=== PATIENT | male | born 1960 | race Caucasian/White ===

== ENCOUNTER 2017-05-13 10:21 | Day surgery (SDC) | payer MEDICARE, BC ==
[~2017-05-13] VITALS: Ht 188 cm; Wt 126.1 kg
[2017-05-13] MEDS ORDERED: IOHEXOL 350 MG/ML 100 ML BTL (for Cath Lab) OTHER ONE (10:22)
[2017-05-13 11:00] VITALS: BP 174/93; PULSE 91; RESP 18; TEMP 97.8; O2SAT 97
[2017-05-13] MEDS ORDERED: ASPI81CH CHEW (11:09)
[2017-05-13] MEDS ORDERED: HYDR25TA5 PO (11:09)
[2017-05-13] MEDS ORDERED: INSU1.2I SQ (11:09)
[2017-05-13] MEDS ORDERED: METO-309 PO (11:09)
[2017-05-13] MEDS ORDERED: [UNRECOGNIZED DRUG - CODE] PO (11:09)
[2017-05-13] MEDS ORDERED: CANA1TAB6 PO (11:09)
[2017-05-13] MEDS ORDERED: CHRO200C PO (11:09)
[2017-05-13] MEDS ORDERED: LIPI10TA PO (11:09)
[2017-05-13] MEDS ORDERED: ASPIRIN 81 MG CHEW TAB PO SCH (11:15)
[2017-05-13 11:24] LABS: AUTOMATED NEUTROPHIL # 8.2 TH/MM3 (1.8-7.7); BASOPHIL # 0.1 TH/MM3 (0-0.2); BASOPHIL % 0.6 % (0.0-2.0); EOSINOPHIL # 0.1 TH/MM3 (0-0.4); EOSINOPHIL % 0.7 % (0.0-4.0); HEMATOCRIT 44.1 % (39.0-51.0); HEMO FLAGS DIFF FINAL; LYMPH % 19.6 % (9.0-44.0); LYMPHOCYTE # 2.3 TH/MM3 (1.0-4.8); MEAN CELL VOLUME 94.6 FL (80.0-100.0); MEAN CORPUSCULAR HEMOGLOBIN 31.5 PG (27.0-34.0); MEAN CORPUSCULAR HGB CONC 33.3 % (32.0-36.0); MONO % 8.3 % (0.0-8.0); NEUT % 70.8 % (16.0-70.0); PLATELET COUNT 344 TH/MM3 (150-450); RED BLOOD COUNT 4.66 MIL/MM3 (4.50-5.90); RED CELL DISTRIBUTION WIDTH 13.8 % (11.6-17.2); WHITE BLOOD COUNT 11.6 TH/MM3 (4.0-11.0)
[2017-05-13 11:38] LABS: BICARBONATE 24.6 MEQ/L (21.0-32.0); POTASSIUM 3.9 MEQ/L (3.5-5.1)
[2017-05-13] MEDS ORDERED: HEPARIN-NS/PF INJ 1,000 ML ONE (13:14)
[2017-05-13] MEDS ORDERED: MIDAZOLAM HCL 2 MG/2 ML VIAL ONE (13:38)
--- NOTE | 2017-05-13 14:09 | CATHPROC ---
[employer] HIS Report Study Information Study Number Admission Scheduled Start Study Start [id number] May 13 2017 10:21AM 05/13/2017 May 13 2017 1:05PM [place] [facility] Cardiac Catheterization Admit Source Facility Department Other [facility] - Molding Line Operator Physician and Clinical Staff Initial John Cardona Candle Molder Machinepaulette Moyer RN, Dominic Keith cathlab, cathlab Recorder Benito Beck RCIS(BS) Antonia Nelson RCIS TECH2 Procedures Performed Procedure Location (Site) Vessel Name Coronary Angiograms LCA Left Coronary Coronary Angiograms RCA Right Coronary L Heart Cath LV Gram-hand inj. LV LV Ventricle Equipment Time Pipe Smoking Machine Offbearer Description Size Mfg Part Number Used/Scraped TRANSDUCER, TRUWAVE [id number] 13:05 MAXWELL MARTINEZ * Used W/STOCKCOCK *[id number] [id number] *[id number] *[id number] *[id number] 13:05 [email or web address] INDUSTRIES PACK, CCL CUSTOM * Used *[id number] 13:05 [email or web address] PACER PEN, SKIN DUAL W/ RULER * Used *[id number] 13:05 [employer] WIRE, 3MMJ .035 180CM 180CM Used *[id number] 13:05 NAMIC MANIFOLD, 4 PORT * Used *[id number] 13:05 [employer] OMNIPAQUE, 350 MG, 150ML 150ML [id number] Used [id number] 13:05 [employer] MEDICAL BLANKET,WARM AIR CCL * Used *[id number] 13:05 TERUMO MEDICAL SHEATH, FR4 TERUMO (10CM) FR 4 Used *[id number] History: Current Medications Medication Dosage/Unit Route Frequency Last Date/Time Taken Beta Aleksandr Statins (any) ASA History: Allergies Allergy Reaction No Known Allergies History: Risk Factors Family History of Hypertension Dyslipidemia Previous ND Previous Heart Failure Premature CAD Yes Yes Yes No No Prior Valve Prior PCI Prior CABG Surgery No No No Cerebrovascular Peripheral Artery Chronic Lung On Dialysis Diabetes Diabetes Therapy Disease Disease Disease No No No No Yes Oral History: Stress Tests Stress or Imaging Studies Performed Yes Standard Exercise Stress Test No Stress Echo No Stress Test SPECT Stress Test SPECT Result Stress Test SPECT Ischemia Risk/Extent Yes Positive Unavailable Stress Test CMR No Cardiac CTA Coronary Calcium Score No No History: Other Disease Selection Items HTN History: Other Current Smoker No Labs Hgb (g/dl) Hct (%) WBC (l/cumm) Platelets (thousands) 11.60-17.00 35.00-51.00 4.00-11.00 150.00-450.00 14.7 44.1 11.6 344 Glucose (mg/dl) BUN (mg/dl) Creatinine (mg/dl) BUN:Creatinine (1:x) 74.00-106.00 7.00-18.00 0.50-1.30 10.00-20.00 152 18 0.8 22.5 Na (meq/l) K (meq/l) 136.00-145.00 3.50-5.10 138 3.9 CPK-MB (ng/ML) 0.50-3.60 Not Drawn Medication Medication Total Dose (Bolus/Oral) Medication Total Dosage/Unit 1% XYLOCAINE 20 mL VERSED 2 mg Medications (Bolus/Oral) Medication Time Given Dosage/Unit Administered By Reason VERSED 05/13/2017 1:39:52 PM 1 mg Dominic Moyer RN 1 mg VERSED given in lab by Dominic Moyer RN in Left Antecubital via Peripheral IV. Ordered by John Juarez. VERSED 05/13/2017 1:46:31 PM 1 mg Dominic Moyer RN 1 mg VERSED given in lab by Dominic Moyer RN in Left Antecubital via Peripheral IV. Ordered by John Juarez. 1% XYLOCAINE 05/13/2017 1:47:57 PM 20 mL John Mann 20 mL 1% XYLOCAINE given in lab by John Mann in Right Groin via Subcutaneous. Medication (Drip) Medication Time Given Dosage/Unit Concentration/Unit Diluent (ml) Solutio n IV Solutions 05/13/2017 1:04:52 PM 0 mL (IV) 500 NaCl .9 Patient arrived on IV Solutions given by sarah smith in Left Antecubital via Peripheral IV. Pump /Drip Flow = 20 ml/hr using NaCl .9. Ordered by John Mann. Initial Case Assessment Cardiovascular HR Rhythm NIBP Chest Pain 93 nsr 163/89 0 Edema Present Skin color Skin None Normal Warm Dry Circulatory - Right Pulses Dorsalis Pedis Femoral 3 2 Scale (0,1,2,3,4,d) Circulatory - Left Pulses Dorsalis Pedis Femoral 3 2 Scale (0,1,2,3,4,d) Neurological State Oriented to time-place- Alert Moves all extremities person Respiration - General Respiration Rate SpO2 (%) (B/min) 16 96 Final Case Assessment Cardiovascular HR Rhythm NIBP Chest Pain 84 nsr 156/86 0 Edema Present Skin color Skin None Normal Warm Dry Circulatory - Right Pulses Dorsalis Pedis Femoral 3 2 Scale (0,1,2,3,4,d) Circulatory - Left Pulses Dorsalis Pedis Femoral 3 2 Scale (0,1,2,3,4,d) Neurological State Oriented to time-place- Alert Moves all extremities person Respiration - General Respiration Rate SpO2 (%) (B/min) 16 96 Chronological Log Time Study Chronological Log 13:04:44 Patient arrived via Bed. 13:04:45 Patient Name, D.O.B, / Armband Verified By R.N. 13:04:45 Consent signed by the physician and the patient and verified by the Molding Line Operator staff. 13:04:46 Pre-op and post- op instructions given; patient acknowledges understanding of instructions. 13:04:46 Verbal Stimulation=2 Physical Stimulation=2 Airway=2 Respiration=1 TOTAL=8. (0=absent, 1=li mited, 2=present) 13:04:47 Presedation assessment performed by Molding Line Operator RN. 13:04:48 Immediate Presedation assesment performed by physician. 13:04:48 Patient has been NPO for More than 6Hrs. 13:04:49 Skin Breakdown- none per patient. 13:04:50 Patient Warmer Placed on the Table. 13:04:50 Rodrigo Prominences Protected 13:04:51 A # 20 IV was noted in the Antecubital (left). Grade = 0 Patient arrived on IV Solutions given by cathlab, cathlab in Left Antecubital via Peripheral IV . Pump/Drip Flow = 20 13:04:52 ml/hr using NaCl .9. Ordered by John Mann. 13:04:53 History and physical on the chart or being dictated. 13:16:14 Reference ECG taken Vitals capture started with the following parameters, Patient=Adult, Interval=5 min, Initial Pr clpteu=487 mmHg, 13:17:24 Deflation Rate=5 mmHg Assessment: Initial Case, HR=93 BPM, Rhythm=nsr, XPCX=639/89 mmhg, Chest Pain=0, Edema=None, Co varun=Normal, Skin = Warm, Dry Right Pulses: Jaskaran Ped=3, Femoral=2 13:17:25 Left Pulses: Jaskaran Ped=3, Femoral=2 Neurological: State=Alert, Ox3, MARINELLI Respiration: Resp=16 B/min, SpO2=96 % 13:18:40 Bilateral groins prepped with 2% chlorhexidine, and with a 3 min. waiting time. 13:18:49 HR=82 bpm, ABNE=273/89 mmhg, SpO2=96.0 %, Resp=16 B/min, Pain=0, Charles=10, Marrufo=2 13:23:11 HR=86 bpm, MCNH=174/86 mmhg, SpO2=97.0 %, Resp=14 B/min, Pain=0, Charles=10, Marrufo=2 13:24:01 MD paged 13:25:29 MD responded 13:28:08 HR=88 bpm, RNSE=646/99 mmhg, SpO2=96.0 %, Resp=14 B/min, Pain=0, Charles=10, Marrufo=2 13:28:35 Pressure channel 1 zeroed. 13:33:07 HR=94 bpm, SXSQ=955/98 mmhg, SpO2=98.0 %, Resp=8 B/min, Pain=0, Charles=10, Marrufo=2 13:38:01 MD arrived. 13:38:11 HR=88 bpm, RHNP=589/82 mmhg, SpO2=96.0 %, Resp=13 B/min, Pain=0, Charles=10, Marrufo=2 13:39:52 1 mg VERSED given in lab by Dominic Moyer RN in Left Antecubital via Peripheral IV. Ordered by John Mann. 13:40:13 Contrast Scanned 13:43:12 HR=83 bpm, JZVK=661/82 mmhg, SpO2=91 %, Resp=13 B/min, Pain=0, Charles=10, Marrufo=2 13:46:31 1 mg VERSED given in lab by Dominic Moyer RN in Left Antecubital via Peripheral IV. Ordered by John Mann. Time Out. Correct patient, correct procedure,correct physician, ,power injector not loaded with contrast with surgical 13:47:25 team present. Time Out Concurred by , individual staff in procedure 13:47:51 Case Start 13:47:52 Verbal Stimulation=2 Physical Stimulation=2 Airway=2 Respiration=2 TOTAL=8. (0=absent, 1=li mited, 2=present) 13:47:57 20 mL 1% XYLOCAINE given in lab by John Mann in Right Groin via Subcutaneous. 13:48:11 HR=82 bpm, BMAS=746/91 mmhg, SpO2=93.0 %, Resp=16 B/min, Pain=0, Charles=10, Marrufo=2 13:49:01 Access site was Right Femoral Artery. 13:49:05 A SHEATH, FR4 TERUMO (10CM) FR 4 was advanced into the Fem Art (right) using the Percutaneo us technique. A JR 4.0 INFINITI CATHETER FR 4 was advanced over a wire. OMNIPAQUE, 350 MG, 150ML 150ML was us ed for 13:49:09 injections. Recorded Pressure: LV, HR=93, Condition=Condition 1 13:51:18 (Left Ventricle) LV 135/3/15 13:51:25 The LV was manually injected with 10 cc's and visualized. OMNIPAQUE, 350 MG, 150ML 150ML us ed. Recorded Pressure: LV, Ao, HR=70, Condition=Condition 1 13:51:40 (Left Ventricle) LV 132/11/44, (Aorta) Ao 119/71/90 13:51:53 The RCA was injected and visualized at various angles. OMNIPAQUE, 350 MG, 150ML 150ML used . Recorded Pressure: Ao, HR=82, Condition=Condition 1 13:52:51 (Aorta) Ao 123/72/96 13:53:12 HR=83 bpm, KTDU=654/85 mmhg, SpO2=96.0 %, Resp=19 B/min, Pain=0, Charles=10, Marrufo=2 13:53:46 Catheter was removed A JL 4.0 INFINITI CATHETER FR 4 was advanced over a wire. OMNIPAQUE, 350 MG, 150ML 150ML was us ed for 13:53:48 injections. 13:55:20 Catheter was removed A JL 5.0 INFINITI CATHETER FR 4 was advanced over a wire. OMNIPAQUE, 350 MG, 150ML 150ML was us ed for 13:55:52 injections. 13:58:13 HR=84 bpm, GZRO=931/86 mmhg, SpO2=95.0 %, Resp=11 B/min, Pain=0, Charles=10, Marrufo=2 13:58:28 The LCA was injected and visualized at various angles. OMNIPAQUE, 350 MG, 150ML 150ML use d. 13:58:39 Catheter was removed 13:58:42 Case End Assessment: Final Case, HR=84 BPM, Rhythm=nsr, PCQE=119/86 mmhg, Chest Pain=0, Edema=None, Col or=Normal, Skin = Warm, Dry Right Pulses: Jaskaran Ped=3, Femoral=2 13:58:47 Left Pulses: Jaskaran Ped=3, Femoral=2 Neurological: State=Alert, Ox3, MARINELLI Respiration: Resp=16 B/min, SpO2=96 % 13:59:10 Catheter(s) removed without difficulty 13:59:12 Sheath(s) left in place, will be removed in Holding Area 13:59:14 Sterile dressing applied to site 13:59:14 No case complications noted. 13:59:15 Cine recording checked. 13:59:17 Bedside Report will be given. 13:59:18 Contrast Scanned 13:59:22 A Left Heart Cath was performed. 14:03:08 HR=84 bpm, UZCN=084/93 mmhg, SpO2=96.0 %, Resp=12 B/min, Pain=0, Charles=10, Marrufo=2 14:07:36 Vitals capture stopped. 14:07:41 Patient moved to [facility] End Study - Contrast Media Used In Study Contrast Total Opened (mL) Total Used (mL) Total Wasted (mL) Omnipaque 60 60 0 End Study - Maximum Contrast Load Max Contrast Load (mL) 788.1 End Study - Radiation Exposure Fluoro Time (minutes) 2.2 End Study - Patient Disposition Complications Transferred To Interventional Outcome No Molding Line Operator Holding No attempt made
[2017-05-13] MEDS ORDERED: BACITRACIN OINT 0.9 GM PKT TOP ONE (14:30)
[2017-05-13] MEDS ORDERED: SODIUM CHLORIDE 0.9% FLUSH 10 ML FLUSH PRN (14:30)
[2017-05-13] MEDS ORDERED: MISC INFORMATION XX ONE (14:30)
--- NOTE | 2017-05-13 16:20 | MA ---
cc: TAE QUACH M.D. DATE: 05/13/2017 PROCEDURE PERFORMED Left heart catheterization, left ventriculography, coronary angiography. INDICATION New onset cardiac symptom of left upper extremity pain at rest, anginal eqivilent, unstable angina, [place] Cardiovascular Society Class IV angina, moderate-sized fixed defect ____ in the posterior wall, anterolateral wall, EF 63%, diabetes mellitus. Note, the patient was counseled by myself personally to hold his Invokamet for 48 hours postprocedure. PROCEDURE The patient was brought to the cardiac catheterization laboratory, prepped and draped in usual sterile fashion. 10 ccs of 1% lidocaine was used to locally anesthetize the right common femoral artery. A 4-Czech sheath was successfully placed in the right common femoral artery. A 4-Czech JR-4, JL-5 catheter was used to perform left and right coronary angiography, left ventriculography. FINDINGS LV pressure is 95/15, EF 60%, right coronary artery is a co-dominant vessel. It has a mid 40% stenosis and a [id number] 50% stenosis. Left main coronary is short and wide diameter with no significant disease angiographically. LAD has mild to moderate disease in the proximal mid segment up to 30-40% angiographically. It is a transapical vessel. It has mild disease in the mid segment up to 10-20% angiographically. First diagonal artery is medium-sized vessel with mild disease up to 20% angiographically in the ostial proximal segment. Left circumflex vessel was a large dominant vessel, no significant obstructive disease angiographically. There is a ramus intermedius vessel which is a small vessel, mild diffuse disease up to 10-20% angiographically. First obtuse marginal vessel is a large vessel approaching the apex with a 50% stenosis in the mid segment of the bifurcation with a small lateral branch. There is a distal posterolateral artery which has no significant obstructive disease. The left PDA has no significant obstructive disease. CONCLUSION 1. Angiographically mild to moderate three-vessel coronary artery disease and a codominant system as detailed above. 2. Normal LV systolic function, ejection fraction 60%. 3. The patient has been instructed by myself personally to hold his Invokamet for 48 hours postprocedure. 4. Recommend medical management of coronary artery disease, cardiac risk factor modification. MD NAYELI Dwyer/TLL /2:12 PM /3:47 PM
[2017-05-13] MEDS ORDERED: SODIUM CHLORIDE 0.9% FLUSH 10 ML FLUSH SCH (21:00)
--- NOTE | 2017-05-14 12:04 | EKG ---
Date Performed: 05/13/2017 Time Performed: 11:06:54 PTAGE: 57 years EKG: Sinus rhythm . Inferior infarct - age undetermined Septal T wave changes are nonspecific Abnormal ECG NO PREVIOUS TRACING DOCTOR: Orlin Kennedy Interpretating Date/Time 05/14/2017 12:01:50
== END 2017-05-13 17:11 | disposition home or self-care (01) ==
LOC: HCAT 10:21 → HDIC 10:22 → HCAT 17:11
PROVIDERS: ATTEND Internal Medicine Interventional Cardiology
DX: I25.110 Atherosclerotic heart disease of native coronary artery with unstable angina pectoris (principal); E78.00 Pure hypercholesterolemia, unspecified; E11.9 Type 2 diabetes mellitus without complications; Z01.818 Encounter for other preprocedural examination
CPT/HCPCS: 80048; 85025; 93005; 93458; C1769; C1893; J1644; J2250; 85610; Q9967

== ENCOUNTER → 2017-12-03 | Day surgery (SDC) | payer MEDICARE, BC ==
[~2017-12-03] MED LIST: ASPI-516 CHEW; BELLADONNA ALKALOIDS/OPIUM 60 MG SUPP RECTAL ONE; CANA1TAB6 PO; CHRO200C PO; GENTAMICIN SULFATE 80 MG/2 ML VIAL ONE; HYDR25TA5 PO; INSU1.2I SQ; LACTATED RINGER'S 1000 ML INJ 1,000 ML ONE; LIPI10TA PO; METO-309 PO; MIDAZOLAM HCL 2 MG/2 ML VIAL ONE; MORPHINE SULFATE 4 MG/ML INJ ONE; ONDANSETRON HCL 4 MG/2 ML VIAL IV PUSH ONE; PROPOFOL 200 MG/20 ML AMP IV ONE; SODIUM CHLORIDE 0.9% SOLN 100 ML (PAB) BAG IV ONE; [UNRECOGNIZED DRUG - CODE] PO
--- NOTE | 2017-12-03 12:14 | TN ---
cc: Shane Mccartney MD DATE OF SURGERY: 12/03/2017 PREOPERATIVE DIAGNOSIS: Bladder tumors (ICD-10 code of D41.4). POSTOPERATIVE DIAGNOSIS: Bladder tumors (ICD-10 code of D41.4). PROCEDURE: Transurethral resection of bladder tumors (TURBT) (CPT code 90360). INDICATIONS: Mr. Dunn is a 57-year-old gentleman who, as part of evaluation for gross hematuria, was found to have both papillary and sessile bladder tumors located at the bladder neck, right hemitrigone and right posterolateral wall and presents now for definitive resection. FINDINGS: Normal urethra, some mild narrowing at the navicularis fossa and a mild grade 1 narrowing at the bulbomembranous urethra. The prostatic urethra showed bilobar hyperplasia with mild obstruction and elevated hypertrophic neck. The trigone showed the ureteral orifice, normal size, shape and position, effluxing clear urine bilaterally. The right ureteral orifice was abutting the tumor in the trigone, but was not involved. It was not able to be visualized until that tumor was resected. The tumor starts at the bladder neck at about the 6 or 7 o'clock position, all the way to about the 10 o'clock position and then extends alongside the trigone and right lateral wall proximally all the way to the right posterolateral wall. There is both some nodular papillary tumors as well as some sessile lesions and some adjacent suspicious lesions. This overall total tumor burden was greater than 2 cm. The remainder of the bladder is actually spared of any significant abnormalities, although there is significant vascularity of the bladder itself. DESCRIPTION OF PROCEDURE: The procedure, as well as risks and benefits were explained to the patient, informed consent was obtained, The patient was taken to the major operative theater where he was placed in the supine position. The patient was identified as well as the operative site. A universal timeout was performed in the standard fashion. At this time, general anesthetic and prophylactic intravenous antibiotics consisting of gentamicin 80 mg was administered. After adequate anesthetic, the patient was then placed in the low dorsal lithotomy position, prepped and draped in the usual sterile fashion. At this time, serial dilatation of the urethra was performed due to some narrowing at the navicularis, and this was dilated using Leora sounds from 16-Greek to 30-Greek only involving the most distal portion of the urethra. At this time, a 22.5-Greek cystoscope with a 30 degree lens was inserted in the urethra and bladder. The 30 degree lens was exchanged for the 70 degree lens. The entire bladder was systematically surveyed with the above findings and pre and postoperative photodocumentation was obtained. At this time, a decision was made to perform transurethral resection of the tumors using the bipolar Gyrus system and a right angle loop. The right angle loop was subsequently exchanged for the PlasmaButton due to difficulty reaching the most posterior portion of the tumors in question. Most of the resection, though, of the portion of the bladder neck and trigone tumor was performed with a right angle loop and meticulous hemostasis was achieved throughout the case using the coagulation mode of electrocautery. Care was not to resect at the ureteral orifice on that right side, but it was just abutting the aforementioned tumor, but was not involved. After complete resection and the adequate depth of care was taken to confirm that there was no perforation of the bladder and that there was good hemostasis. Since there was significant resection, a decision was made to place a Wade catheter. After the resectoscope was removed, a 16-Greek Wade catheter was placed to straight drain with 10 mL of sterile water insufflated into the balloon with clear urinary effluxing. A belladonna and opioid suppository was given per rectum. The patient then placed back in the supine position, emerged from anesthetic without difficulty and transferred to the recovery room in stable condition to be discharged home when criteria are met. The resection specimens were all sent for final pathological evaluation. MD MEALNIE Hutson/MEDARDO , 11:50 AM , 12:13 PM
== END | disposition home or self-care (01) ==
LOC: ESDC 08:02
PROVIDERS: ATTEND Urology
DX: C67.0 Malignant neoplasm of trigone of bladder (principal); E11.9 Type 2 diabetes mellitus without complications; Z79.4 Long term (current) use of insulin
CPT/HCPCS: 00912; 52235; 82948; 88307; J1580; J2250; J2270; J2405; J3010; J7120; 88305